=== PATIENT | male | born 1945 | race Caucasian/White ===

== ENCOUNTER → 2024-10-01 16:20 | Outpatient (REF) | payer MEDICARE, SELFPAY | LOC: RAD 16:20 | PROVIDERS: ATTENDING PHYSICIAN Family Medicine | DX: M16.11 Unilateral primary osteoarthritis, right hip (principal); M70.61 Trochanteric bursitis, right hip | CPT/HCPCS: 73522 ==

== ENCOUNTER → 2024-10-21 11:31 | Outpatient (REF) | payer MEDICARE, SELFPAY | LOC: REG 11:31 | PROVIDERS: ATTENDING PHYSICIAN Physician Assistant | DX: J22 Unspecified acute lower respiratory infection (principal) | CPT/HCPCS: 71046 ==

== ENCOUNTER → 2024-12-30 14:17 | Outpatient (REF) | payer MEDICARE, SELFPAY | LOC: RAD 14:17 | PROVIDERS: ATTENDING PHYSICIAN Nurse Practitioner Family; FAMILY PHYSICIAN Family Medicine | DX: R05.3 Chronic cough (principal) | CPT/HCPCS: 71046 ==

== ENCOUNTER → 2025-01-18 11:38 | Outpatient (REF) | payer MEDICARE, SELFPAY | LOC: RAD 11:38 | PROVIDERS: ATTENDING PHYSICIAN Nurse Practitioner Family; FAMILY PHYSICIAN Family Medicine | DX: J18.9 Pneumonia, unspecified organism (principal) | CPT/HCPCS: 71046 ==

== ENCOUNTER → 2025-01-27 16:26 | Outpatient (REF) | payer MEDICARE, SELFPAY | LOC: RAD 16:26 | PROVIDERS: ATTENDING PHYSICIAN Physician Assistant; FAMILY PHYSICIAN Family Medicine | DX: R04.2 Hemoptysis (principal); R06.02 Shortness of breath; J18.9 Pneumonia, unspecified organism | CPT/HCPCS: 71275; Q9967 ==

== ENCOUNTER 2025-01-27 23:24 | Inpatient (IN) | payer MEDICARE, SELFPAY ==
[2025-01-27 19:36] VITALS: BP 131/97
[2025-01-27 19:40] VITALS: BP 131/97
[2025-01-27 20:10] LABS: % Basophils 0.6 % (0-2); % Eosinophils 2.6 % (0-6); % Immature Granulocytes 0.6 % (0-0.5); % Lymphocytes 24.6 % (20.5-51.1); % Monocytes 8.2 % (1.7-9.3); % Neutrophils 63.4 % (42.2-75.2); Absolute Eosinophils 0.2 10^3/uL (0-0.7); Absolute Lymphocytes 1.5 10^3/uL (1.2-3.4); Absolute Monocytes 0.5 10^3/uL (0.1-0.6); Hematocrit 39.8 % (39.0-52.0); Hemoglobin 13.9 g/dL (13.0-18.0); Mean Corp Hgb Conc. 34.9 g/dL (33.0-37.0); Mean Corpuscular Hgb 31.6 pg (27.0-31.0); Mean Corpuscular Volume 90.5 fL (80.0-94.0); Mean Platelet Volume 8.2 fL (7.4-10.4); Nucleated Red Blood Cells % 0 % (-); Platelet Count 259 10^3/uL (130-400); Red Cell Dist. Width 13.5 % (11.5-14.5); White Blood Cell Count 6.2 10^3/uL (4.8-10.8)
[2025-01-27 20:23] LABS: ALT (SGPT) 24 U/L (0-50); AST (SGOT) 25 U/L (17-59); Albumin 3.7 g/dl (3.5-5.0); Alkaline Phosphatase 72 U/L (38-126); Blood Urea Nitrogen 12 mg/dl (9-20); Calcium 9.4 mg/dl (8.4-10.2); Carbon Dioxide 30 mmol/L (22-30); Chloride 108 mmol/L (98-107); Glucose 119 mg/dl (70-99); Potassium 4.5 mmol/L (3.5-5.1); Sodium 143 mmol/L (135-145); Total Bilirubin 0.5 mg/dl (0.2-1.3); Total Protein 6.3 g/dl (6.3-8.2); eGFR > 60.00
[2025-01-27 22:11] VITALS: BMI 31.0
[2025-01-27 22:12] VITALS: BP 144/84
--- NOTE | 2025-01-27 22:32 | ED.GENMED ---
History of Present Illness
General
Chief Complaint: Breathing Problem
Source: patient, records, spouse, previous radiology exam and previous hospital records
Exam Limitations: none
Time Seen by Provider: 01/27/25 22:20
Nursing documentation reviewed up to this point in time: agreed with
History of Present Illness
History of Present Illness:
79-year-old male referred to the ER for admission by his PCP due to worsening pneumonia symptoms started 3 to 4 months ago has been on doxycycline and Augmentin Levaquin multiple doses of steroids saw pulmonary apparently he responds and then
clinically worsens, has a harsh cough, no fever no hemoptysis, had a CAT scan today that showed multilobar pneumonia
Past History
Past History
ED Past Medical History: Negative Arrthythmia
ED Past Surgical History: Cholecystectomy
Social History
Tobacco: Non-smoker
Alcohol: None
Drug: None
Personal:
Living: with family
Employment: Retired
Review of Systems
Review of Systems
All Other Systems: Not applicable
Constitutional: Reports fatigue
Respiratory: Reports cough and trouble breathing
Cardiac: Reports no symptoms
ABD/GI: Reports no symptoms
: Reports no symptoms
Phy Exam
Physical Exam
Physical Exam:
Physical Exam
General: no apparent distress, not acutely ill
Neck: supple.
Heart: s1/s2 regular rate and rhythm, no murmur. equal radial pulses.
Lungs: decreased left base
Abdomen: Nontender
Neuro: alert and oriented. no focal neurological deficits
Skin: no rash
Psychiatric: well kept. interactive and cooperative
Extremities: no edema. no calf tenderness
Scores
Heart Failure Risk
Heart Failure Risk Score: Not Applicable
Course
Orders/Labs/Results
Orders:
Orders
01/27/25 19:56
Complete Blood Count/With Diff Urgent
Comprehensive Metabolic Panel Urgent
Lactic Acid Urgent
01/27/25 22:32
Ipratropium/Albuterol Sulfate [Duoneb] 3 ml INH R NOW ONE
Abnormal Lab Results
01/27/25
19:56
RBC 4.40 L 10^6/uL
(4.70-6.10)
MCH 31.6 H pg
(27.0-31.0)
Immature Gran % 0.6 H %
(0-0.5)
Chloride 108 H mmol/L
(98-107)
Glucose 119 H mg/dl
(70-99)
01/27/25 19:56
01/27/25 19:56
Vital Signs
Initial and Last Documented VS:
Initial Vital Signs
Temp Pulse Resp BP Pulse Ox
98.4 F 74 18 131/97 95
01/27/25 19:36 01/27/25 19:36 01/27/25 19:36 01/27/25 19:36 01/27/25 19:36
Last Documented Vital Signs
Temp Pulse Resp BP Pulse Ox
98.6 F 59 19 144/84 97
01/27/25 22:11 01/27/25 22:15 01/27/25 22:15 01/27/25 22:12 01/27/25 22:16
MDM/Problems Addressed
Differential Diagnosis Includes:
Pneumonia inflammatory process vasculitis other
MDM/Problems Addressed:
Shortness of breath worsening chest CT
*Radiology
Radiology exam reviewed: radiology read reviewed
*Pulse Oximetry
Patient hypoxic: no
*EKG
Interpreted by ED Provider?: Yes
Interpretation: normal
Comparison EKG: no comparison EKG present
Heart Rate: 78
Rate: normal
Rhythm: sinus
Ischemia: no ischemia
*Loom Setter Interpretation
Rate: normal
Interpretation: normal
Heart Rate: 78
Rhythm: sinus
*Critical Care Note
Total Time (30-74mins, 75-104mins- exclusive of procedures): Not Applicable
Data Reviewed
Review of Other/Old Records Reveals: Labs and Radiology Studies
Source: patient and spouse
Update Note
Update Note:
Update patient with worsening symptoms despite appropriate therapy specialty consultation as an outpatient sent in by PCP for admission which is not unreasonable not sure that this is infectious we will try nebs,
ED Attending Note
-
Portions of this chart may have been created with voice recognition software.� Occasional wrong word or��sound alike� substitutions may have occurred due to the inherent limitations of voice recognition software.
Discharge Plan
Departure
Patient Disposition: Admit
Date of Disposition: 01/27/25
Time of Disposition: 22:43
Admit to: Med/Surg
Presentation/result/management discussed w/ accepting MD/DO: Hospitalist
Patient with high blood pressure during this ER visit?: No
Condition: Good
Discharge Problem:
History of pneumonia, recurrent
Prescriptions:
No Action
Imodium
1 mg PO PRN PRN (Reason: Diarrhea )
aspirin
325 mg PO DAILY
famotidine
20 mg PO DAILY
meloxicam
15 mg DAILY
atorvastatin
80 mg PO DAILY
oxycodone 5 mg tablet
5 mg PO Q4HPRN PRN (Reason: breakthrough/severe pain) Qty: 10 0RF
tolterodine
4 mg PO DAILY
Interventions
Interventions:
*Risk Screen - Suicide Last Done: 01/27/25 22:11
*General Assessment Last Done: 01/27/25 19:39
*Neglect/Abuse Screening Last Done: 01/27/25 22:11
*ED- Fall Risk Assessment Last Done: 01/27/25 22:11
*ED COVID-19 Vaccine History Last Done: 01/27/25 22:11
ED- Cardiac Assessment Last Done: 01/27/25 22:16
ED- Pulmonary Assessment Last Done: 01/27/25 22:16
Discharge Date and Time
Print Language: TAJIK
[2025-01-27 23:00] VITALS: BP 150/85
[2025-01-27 23:05] LABS: Erythrocyte Sed Rate 11 mm/hour (0-20)
[2025-01-27] MEDS: DUONEB 3 ML INH (23:07)
--- NOTE | 2025-01-27 23:17 | HPS.HSE ---
Family Physician
-
Family Physician: Jon Knowles
Chief Complaint
-
cough
History of Present Illness
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 difficile, presenting for persistent cough. He had influenza in September and since then he has had persistent cough
and was found to have left lower lobe pneumonia treated with 3 courses of antibiotics including doxycycline first, Augmentin and then Levaquin 2 doses of steroids. The treatments do help with symptoms but they returned shortly after treatment. He
has a cough that is occasionally productive of yellow, brown color, sometimes blood and lung looking tissue. He has intermittent fevers and chills but takes medication for this. Has chest pain with cough.
He did see Dr. Pizarro in the office and was prescribed long-acting inhaler.
He is a former smoker. He drinks alcohol occasionally.
He does travel frequently and was recently in [facility] in October.
Medical History
Past Medical History
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 difficile)
Past Surgical History: Reports None
Social History
Tobacco: Former Smoker
Alcohol: Occasional
Drug: None
Family History
Family History: Not pertinent
Allergies / Home Medications
Allergies reflects when Allergies were last updated in [facility].
Home Medications with original date entered in [facility]
Allergy/Medication List:
Allergies
Allergy/AdvReac Type Severity Reaction Status Date / Time
No Known Allergies Allergy Verified 03/27/23 20:36
Home Medications
Imodium 1 mg PO PRN PRN Diarrhea 03/28/23
aspirin 325 mg PO DAILY Blood Clot Prevention/Tx 03/28/23
atorvastatin 80 mg PO DAILY High Cholesterol 03/28/23
famotidine 20 mg PO DAILY Gastrointestinal Issue 03/28/23
meloxicam 15 mg DAILY Pain 03/28/23
oxycodone 5 mg tablet 5 mg PO Q4HPRN PRN breakthrough/severe pain #10 tabs 03/28/23
tolterodine 4 mg PO DAILY Urinary Issue 03/28/23
Review of Systems
-
History Source: Patient
A 12 point ROS was completed and negative except as noted: Yes
Constitutional: Reports No Symptoms
EENT: Reports No Symptoms
Respiratory: Reports See HPI
Cardiac: Reports No Symptoms
Abdomen/GI: Reports No Symptoms
: Reports No Symptoms
Musculoskeletal: Reports No Symptoms
Skin: Reports No Symptoms
Neurological: Reports No Symptoms
Endocrine: Reports No Symptoms
Hematologic/Lymphatic: Reports No Symptoms
Psych: Reports No Symptoms
Physical Exam
Vital Signs
Vital Signs
Temp Pulse Resp BP Pulse Ox
98.6 F 59 19 144/84 97
01/27/25 22:11 01/27/25 22:15 01/27/25 22:15 01/27/25 22:12 01/27/25 22:16
Physical Exam
General: Well Developed, Well Nourished and No Apparent Distress
HEENT: NormoCephalic, Moist mucous membranes and Atraumatic
Respiratory: Clear
Cardiac: S1/S2 and Regular Rhythm; No Murmur or Rub
GI: Soft, Non Tender, Non Distended and Normal Bowel Sounds; No Organomegaly
Rectal: Deferred by Provider
Musculoskeletal: No Clubbing, No Cyanosis and No Edema
Skin: No Rash
Neuro: Nonfocal/grossly intact
Laboratory Results
-
01/27/25 19:56
01/27/25 19:56
Laboratory Results
Lactic Acid 2.0 mmol/L (0.7-2.0) 01/27/25 19:56
Total Bilirubin 0.5 mg/dl (0.2-1.3) 01/27/25 19:56
AST 25 U/L (17-59) 01/27/25 19:56
ALT 24 U/L (0-50) 01/27/25 19:56
Alkaline Phosphatase 72 U/L (38-126) 01/27/25 19:56
Data Reviewed
-
Lab Data: Labs Reviewed by me
Old Records: Reviewed
Impression/Plan
-
IMPRESSION:
PLAN:
# Persistent left lower lobe pneumonia despite multiple courses of antibiotics/steroids
-Not hypoxemic
-CT chest today shows moderate pneumonia in the lingula and basilar left lower lobe, new complete occlusion of the left upper lobe bronchus
- DuoNebs every 6 hours
- Mucinex
- Ceftriaxone/azithromycin
- Appears that he responds to treatments, but symptoms return
-Check sputum culture
- Check strep antigen, Legionella, MRSA
-Pro-Alonso pending
- Pulmonary consulted, may need to consider bronchoscopy for atypical types of pneumonia
GERD
- Continue famotidine
Hypercholesteremia
- Continue statin
- Continue aspirin for prophylaxis
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
- Continue Imodium
History of C. difficile
Former smoker
Full code
DVT prophylaxis�heparin
Regular diet
[2025-01-28] VITALS (12 sets, daily range): BP systolic 126–161; BP diastolic 69–90; BMI 29.9
[2025-01-28 00:10] LABS: Procalcitonin < 0.05 ng/ml (0.0-0.25)
[2025-01-28] MEDS: ROCEPHIN 1000 MG IV ×2 (01:11→21:52)
[2025-01-28] MEDS: ZITHROMAX INFUSION 250 IV ×2 (01:11→22:27)
[2025-01-28] MEDS: STERILE WATER FOR INJECTION 10 ML IV ×2 (01:12→21:52)
[2025-01-28 06:11] LABS: % Basophils 0.8 % (0-2); % Eosinophils 2.7 % (0-6); % Immature Granulocytes 0.5 % (0-0.5); % Lymphocytes 25.7 % (20.5-51.1); % Monocytes 9.6 % (1.7-9.3); % Neutrophils 60.7 % (42.2-75.2); Absolute Basophils 0.1 10^3/uL (0-0.2); Absolute Eosinophils 0.2 10^3/uL (0-0.7); Absolute Lymphocytes 1.6 10^3/uL (1.2-3.4); Absolute Monocytes 0.6 10^3/uL (0.1-0.6); Absolute Neutrophils 3.8 10^3/uL (1.4-6.5); Hematocrit 37.1 % (39.0-52.0); Hemoglobin 13.1 g/dL (13.0-18.0); Mean Corp Hgb Conc. 35.3 g/dL (33.0-37.0); Mean Corpuscular Hgb 31.4 pg (27.0-31.0); Mean Platelet Volume 8.3 fL (7.4-10.4); Nucleated Red Blood Cells % 0 % (-); Platelet Count 236 10^3/uL (130-400); Red Blood Cell Count 4.17 10^6/uL (4.70-6.10); Red Cell Dist. Width 13.5 % (11.5-14.5); White Blood Cell Count 6.2 10^3/uL (4.8-10.8)
[2025-01-28 06:32] LABS: ALT (SGPT) 23 U/L (0-50); AST (SGOT) 24 U/L (17-59); Albumin 3.2 g/dl (3.5-5.0); Alkaline Phosphatase 67 U/L (38-126); Blood Urea Nitrogen 14 mg/dl (9-20); Calcium 9.1 mg/dl (8.4-10.2); Carbon Dioxide 24 mmol/L (22-30); Chloride 112 mmol/L (98-107); Estimated Creatinine Clearance 80 ml/min; Glucose 98 mg/dl (70-99); Sodium 142 mmol/L (135-145); Total Bilirubin 0.5 mg/dl (0.2-1.3); Total Protein 5.6 g/dl (6.3-8.2); eGFR > 60.00
[2025-01-28] MEDS: DUONEB 3 ML INH (07:28)
[2025-01-28] MEDS: HEPARIN 5000 UNITS SC ×2 (08:05→20:14)
[2025-01-28] MEDS: MUCINEX 1200 MG PO (08:05)
--- NOTE | 2025-01-28 09:11 | W.PN.HOSP.TC ---
Today's Communication/Plan
-
See plan
Assessment / Plan
Assessment / Plan
Impression:
79 years old male with prior history of tobacco smoking presents with persistent cough, intermittent hemoptysis. Symptomatic for close to 5 months with no relief after multiple courses of antibiotics and corticosteroids.
Acute hypoxic respiratory insufficiency�88% on room air upon presentation.
Persistent cough.
Intermittent hemoptysis.
Lingular consolidation with bronchial obstruction on CT scan
Tobacco smoker cigars quit over 15 years ago.
Occupational exposure working on [employer]
Other conditions:
History of C. difficile colitis.
Pseudomonas colitis with chronic
Dyslipidemia.
GERD.
Cholecystectomy
Plan:
Persistent cough, intermittent hemoptysis
CT scan with lingular consolidation and bronchial obstruction.
Treated for pneumonia with multiple courses of antibiotics and corticosteroids with no relief.
Afebrile.
Normal WBC, undetectable procalcitonin.
Pulmonology consultation with consideration of endoscopic airway evaluation.
Empiric antibiotics covering community-acquired pathogens: Ceftriaxone/Zithromax. Depends on clinical course consider broaden spectrum
Cough suppressants
Nebulizers
Continue Breztri
Anticipated Discharge: 24 - 48 hours
Subjective/Interval History
-
Date of Service: January 28, 2025
Objective Data
-
Labs:
Laboratory Results
01/28/25
05:57
WBC 6.2
Hgb 13.1
Hct 37.1 L
Plt Count 236
Sodium 142
Potassium 4.0
Chloride 112 H
Carbon Dioxide 24
BUN 14
Creatinine 0.8
Glucose 98
Calcium 9.1
Total Bilirubin 0.5
AST 24
ALT 23
Alkaline Phosphatase 67
Vital Signs:
Vital Signs
Temp Pulse Resp BP Pulse Ox
98.2 F 76 19 149/90 93
01/28/25 07:00 01/28/25 08:00 01/28/25 08:00 01/28/25 07:00 01/28/25 07:31
Physical Exam
-
General: Well Developed and No Apparent Distress
HEENT: Normocephalic, Atraumatic and Moist Mucous Membranes
Respiratory: Rhonchi; Negative Wheezes
Cardiac: Regular Rhythm and S1/S2; Negative Murmur, Rub or Gallop
GI: Soft, Nontender, Nondistended and Normal Bowel Sounds; Negative Organomegaly
Rectal: Deferred by Provider
Musculoskeletal: No Clubbing, No Cyanosis and No Edema
Skin: Negative Rash
Neuro: Nonfocal/Grossly Intact
[2025-01-28] MEDS: ROBITUSSIN AC 10 ML PO (09:54)
[2025-01-28] MEDS: SPIRIVA RESPIMAT 2.5 MCG 2 PUFF INH (11:06)
[2025-01-28] MEDS: VENTOLIN NEBULES 2.5 MG INH ×3 (11:07→19:28)
[2025-01-28] MEDS: SYMBICORT 160/4.5 MCG INHALER 2 PUFF INH ×2 (11:07→19:28)
[2025-01-28] MEDS: LEXAPRO 10 MG PO (11:10)
[2025-01-28] MEDS: PEPCID 20 MG PO (11:10)
[2025-01-28] MEDS: LIPITOR 80 MG PO (11:10)
[2025-01-28] MEDS: DETROL LA 4 MG PO (12:25)
--- NOTE | 2025-01-28 16:03 | CON.PUL ---
Consultation
Consultation Request
Date/Time Consultation Requested: 01/28/2025
Date/Time Consultation Performed: 01/28/2025
Requesting Provider: Dr. García
Performing Provider: Dr. Jonny Lane
Reason for Consultation: abnormal CT chest
Medical History
-
History of Present Illness:
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 difficile, presented with coughing.
Patient apparently had influenza in September and since then had a persistent cough and was found to have a left lower lobe pneumonia reportedly treated with 3 courses of antibiotics, doxycycline, Augmentin and 2 courses of Levaquin with the steroids.
Apparently symptoms returned shortly after therapy.
Cough is occasionally productive of yellow sputum, no hemoptysis, does report having some clumps on sputum.
Does report subjective intermittent fevers.
He was seen by Dr. Pizarro in the outpatient setting.
He is a former smoker.
He traveled to [facility] in October 2024
-
[facility] records reviewed-patient was seen by Dr. Pizarro in December 2024. Initial visit due to chronic coughing.
Apparently had flu a October 21, 2024 and symptoms have been persistent since then.
Given persistently abnormal x-ray and symptoms he has been treated with multiple antibiotics. More recently on Levaquin-completed 7 days last Monday.
CT of the chest was performed and after reviewing he was sent to the emergency room by primary care due to nonclearing infiltrate.
-
Currently appears nontoxic
Denies hemoptysis
He always feels better with antibiotics and steroids
He has never had any pulmonary problems prior September.
Denies any weight loss
He does have GERD but denies swallowing problems.
-
Last anesthesia in 2022 for cholecystectomy without complications.
He reports having colonoscopy in the past without complications.
-
Denies any cardiac disease. Denies shortness of breath or chest pain in general.
Past Medical History
Past Medical History: Other (See assessment and plan)
Social History
Tobacco: Former Smoker (Cigars/pipe. Minimal cigarette smoking. Quit in 1988)
Alcohol: Occasional
Drug: None
Personal:
Living: With Family
Employment: Retired
Occupational Exposures: Denies
Environmental Exposures: Denies
Family History
Family History: Reviewed & Not Pertinent
Allergies / Home Medications
Allergies
Allergy/AdvReac Type Severity Reaction Status Date / Time
No Known Allergies Allergy Verified 03/27/23 20:36
Home Medications
�Medication �Instructions �Recorded �Confirmed �Last Taken �Type
aspirin 325 mg tablet 325 mg PO DAILY Blood Clot 03/28/23 01/28/25 Unknown History
Prevention/Tx ##0
atorvastatin 80 mg tablet (Lipitor) 80 mg PO DAILY High Cholesterol ##0 03/28/23 01/28/25 Unknown History
famotidine 20 mg tablet (Pepcid) 20 mg PO DAILY Gastrointestinal 03/28/23 01/28/25 Unknown History
Issue ##0
loperamide 2 mg tablet 1 mg PO DAILY ##0 03/28/23 01/28/25 Unknown History
meloxicam 15 mg tablet 15 mg PO DAILY Pain ##0 03/28/23 01/28/25 Unknown History
tolterodine 4 mg capsule,extended 4 mg PO DAILY Urinary Issue ##0 03/28/23 01/28/25 Unknown History
release 24 hr
acetaminophen 500 mg tablet 1,000 mg PO HS 01/28/25 01/28/25 Unknown History
(Tylenol Extra Strength)
albuterol sulfate 90 mcg/actuation 2 puff inhalation R Q6HPRN PRN sob 01/28/25 01/28/25 Unknown History
aerosol inhaler
budesonide 160 mcg-glycopyr 9 2 inh inhalation R BID 01/28/25 01/28/25 Unknown History
mcg-formot 4.8 mcg/actuation HFA
inhaler (Breztri Aerosphere)
escitalopram oxalate 10 mg tablet 10 mg PO DAILY 01/28/25 01/28/25 Unknown History
(Lexapro)
ipratropium 0.5 mg-albuterol 3 mg 3 ml inhalation R TID 01/28/25 01/28/25 Unknown History
(2.5 mg base)/3 mL nebulization
soln
promethazine-DM 6.25 mg-15 mg/5 mL 5 ml PO Q6HPRN PRN cough 01/28/25 01/28/25 Unknown History
oral syrup
Review of Systems
-
History Source: Patient
All other systems: Negative unless noted
Vitals / Labs / Diagnostic Testing
Vital Signs
Temp Pulse Resp BP Pulse Ox
98.1 F 78 20 141/80 94
01/28/25 11:00 01/28/25 14:00 01/28/25 14:00 01/28/25 12:00 01/28/25 12:00
Lab Data
01/28/25 05:57
01/28/25 05:57
Microbiology
01/28/25 07:10 Sputum Respiratory Culture - Final
01/28/25 07:10 Sputum Gram Stain - Final
01/28/25 01:02 Urine Legionella Urinary Antigen - Final
Negative for Legionella pneumophila Serogroup 1 antigen.
A negative result does not rule out the possiblity of
Legionella infection due to other serogroups or species of
Legionella. Clinical correlation is recommended.
01/28/25 01:02 Urine Streptococcus pneumoniae Antigen (M - Final
Negative for Streptococcus pneumoniae antigen.
A negative result does not exclude infection with
Streptococcus pneumoniae. Clinical correlation is
recommended.
Diagnostic Testing:
Physical Exam
-
HEENT: Normocephalic
Cardiovascular: S1/S2
Respiratory: Clear and Non-Labored Respirations
GI: Soft and Non Distended
Neurology: Awake and AO x 3
Skin: Warm
General: Comfortable
Assessment
-
79-year-old male with past medical history noted. Started with pulmonary symptoms since September after influenza. Since then with intermittent coughing, shortness of breath, cough paroxysms, denies any fevers or chills. Has received 3 courses of
antibiotics including doxycycline, Augmentin and more recently Levaquin completed last Monday. Due to persistent symptoms CT scan was performed in the outpatient setting and showed significant abnormalities. He was sent to the emergency room for
evaluation. He reports feeling better with the steroids and antibiotics but symptoms shortly after recur. He was seen in our office by Dr. Pizarro and prescribed steroids without significant improvement.
We were consulted for evaluation of abnormal CT chest and possibly airway inspection with cultures
Abnormal CT chest 01/27/2025:
Moderate pneumonia in the lingula and basilar left lower lobe. Near complete occlusion of the left upper lobe bronchus. Mild left hilar lymphadenopathy. Minimal left parapneumonic effusion. Severe calcific atherosclerotic plaques. Mild
splenomegaly.
Nonresolving pneumonia-cannot rule out malignancy versus other type of infectious process such as fungal.
Conditions present prior admission:
GERD
Hypercholesterolemia
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
status postcholecystectomy in 2022
History of C. difficile
Former smoker-mainly cigar and pipe and quit in 1988.-Denies prior pulmonary problems.
Assessment and plan:
Abnormal CT chest: Nonresolving pneumonia/coughing despite multiple courses of antibiotics and steroids since September 2024.
He was seen by Dr. Pizarro in December 2024-recommended inhalers and repeat imaging.
Symptoms have been persistent.
-
Prior imaging reviewed:
CT abdomen pelvis lung cuts 03/27/2023: Relatively clear lungs.
Chest x-ray 10/21/2024: Clear lung
Chest x-ray 12/30/2024: Patchy left lower lobe opacifications suggestive of pneumonia.
Chest x-ray 01/18/2025: Moderate to large dense airspace consolidation in the left lower lobe progressed compared to prior.
CT chest this admission 01/27/2025: Noted with moderate pneumonia in the lingula and basilar left lower lobe. Near complete occlusion of the left upper lobe bronchus. Mild left hilar adenopathy. Minimal left parapneumonic effusion.
-
Persistent symptoms including coughing, with paroxysms. Persistent left lower lobe abnormality now with mild mediastinal adenopathy and near complete occlusion of the left upper lobe bronchus.
Lack of fevers and leukocytosis. Negative procalcitonin
Recommend airway inspection plus or minus endobronchial ultrasound evaluation of hilar and mediastinal lymph nodes. BAL with cultures-rule out malignancy versus other type of infectious etiology such as fungal-he denies any risk factors or
exposures.
N.p.o. after midnight
Patient is high risk for cancer given former smoking-quit in 1988 mainly cigar and pipe.
Interestingly, there was no significant abnormality on CT abdomen pelvis lung cuts from March 2023.
-
Sputum culture this admission poor sample
Negative Legionella
Negative Streptococcus urine antigen
MRSA screening pending
Blood cultures pending
Okay to continue antibiotics IV for community-acquired pneumonia azithromycin/Zithromax for now.
Antitussives
Mucolytic's
Not bronchospastic on exam. Continue Symbicort/Spiriva.
-
Patient does have mild coronary calcification on CAT scan.
Obtain EKG
Denies any exertional chest pain or cardiac history.
Seen in cardiology
Underwent general anesthesia 2022 for cholecystectomy without complications.
-
DVT prophylaxis with heparin subcu.
-
Will follow
--- NOTE | 2025-01-28 17:09 | PTCARENOTE ---
Received pt from ED. Pt ambulatory to bed with no assistance. at bedside. Oriented to room, no complaints at this time.
[2025-01-29 07:37] VITALS: BP 136/70
[2025-01-29] MEDS: VENTOLIN NEBULES 2.5 MG INH ×4 (07:40→19:27)
[2025-01-29] MEDS: SYMBICORT 160/4.5 MCG INHALER 2 PUFF INH ×2 (07:40→19:27)
[2025-01-29] MEDS: SPIRIVA RESPIMAT 2.5 MCG 2 PUFF INH (07:40)
[2025-01-29 09:45] VITALS: BP 136/70; BP 152/87
--- NOTE | 2025-01-29 09:56 | W.PN.PUL3 ---
Today's Communication / Plan
-
Follow BAL and washing cultures
Continue antibiotics for today
Secretion clearance interventions
Assessment
-
79-year-old male with past medical history noted. Started with pulmonary symptoms since September after influenza. Since then with intermittent coughing, shortness of breath, cough paroxysms, denies any fevers or chills. Has received 3 courses of
antibiotics including doxycycline, Augmentin and more recently Levaquin completed last Monday. Due to persistent symptoms CT scan was performed in the outpatient setting and showed significant abnormalities. He was sent to the emergency room for
evaluation. He reports feeling better with the steroids and antibiotics but symptoms shortly after recur. He was seen in our office by Dr. Pizarro and prescribed steroids without significant improvement.
We were consulted for evaluation of abnormal CT chest and possibly airway inspection with cultures
Abnormal CT chest 01/27/2025:
Moderate pneumonia in the lingula and basilar left lower lobe. Near complete occlusion of the left upper lobe bronchus. Mild left hilar lymphadenopathy. Minimal left parapneumonic effusion. Severe calcific atherosclerotic plaques. Mild
splenomegaly.
Nonresolving pneumonia-cannot rule out malignancy versus other type of infectious process such as fungal.
Conditions present prior admission:
GERD
Hypercholesterolemia
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
status postcholecystectomy in 2022
History of C. difficile
Former smoker-mainly cigar and pipe and quit in 1988.-Denies prior pulmonary problems.
Assessment and plan:
Abnormal CT chest: Nonresolving pneumonia/coughing despite multiple courses of antibiotics and steroids since September 2024.
He was seen by Dr. Pizarro in December 2024-recommended inhalers and repeat imaging.
Symptoms have been persistent.
-
Prior imaging reviewed:
CT abdomen pelvis lung cuts 03/27/2023: Relatively clear lungs.
Chest x-ray 10/21/2024: Clear lung
Chest x-ray 12/30/2024: Patchy left lower lobe opacifications suggestive of pneumonia.
Chest x-ray 01/18/2025: Moderate to large dense airspace consolidation in the left lower lobe progressed compared to prior.
CT chest this admission 01/27/2025: Noted with moderate pneumonia in the lingula and basilar left lower lobe. Near complete occlusion of the left upper lobe bronchus. Mild left hilar adenopathy. Minimal left parapneumonic effusion.
-
Persistent symptoms including coughing, with paroxysms. Persistent left lower lobe abnormality now with mild mediastinal adenopathy and near complete occlusion of the left upper lobe bronchus.
Lack of fevers and leukocytosis. Negative procalcitonin
-
Airway inspection underwent 01/29/2025: Thick mucoid secretions found on left mainstem bronchus and left upper lobe.
No endobronchial lesion. Mucosa was mildly erythematous.
Right lung was clean and with normal anatomy.
Washings and BAL sent for bacterial, fungal cultures, cell count and cytology.
--
Patient is high risk for cancer given former smoking-quit in 1988 mainly cigar and pipe.
Interestingly, there was no significant abnormality on CT abdomen pelvis lung cuts from March 2023.
Radiographic follow-up will be needed in the next 6 to 8 weeks. He will continue to follow-up with Dr. Pizarro.
-
Sputum culture this admission poor sample
Wait for BAL cultures.
Negative Legionella
Negative Streptococcus urine antigen
MRSA screening pending
Blood cultures pending
Okay to continue antibiotics IV for community-acquired pneumonia azithromycin/Zithromax for now. If cultures negative then discontinue antibiotics. I favor observation of antibiotics since patient just completed course of Levaquin last Monday.
May contemplate low-dose macrolide therapy for anti-inflammatory properties upon discharge.
Will start secretion clearance interventions
Acapella device
As needed nebulizers
Antitussives
Mucolytic's
Not bronchospastic on exam. Continue Symbicort/Spiriva-he has been taking Brestri since December.
-
Patient does have mild coronary calcification on CAT scan.
Obtain EKG
Denies any exertional chest pain or cardiac history.
Underwent general anesthesia 2022 for cholecystectomy without complications.
-
DVT prophylaxis with heparin subcu.
-
Will follow.
Subjective Data
-
Date of Service:
Date of Service: January 29, 2025
Chief Complaint: Pulmonary Follow Up (Pneumonia)
Subjective:
Continues to report coughing
No significant hemoptysis intermittent phlegm production
Denies shortness of breath or wheeze
Review of Systems
General: Fever (n)
Cardiopulmonary: Dyspnea (none), Cough and Sputum Production
GI: Abdominal Pain (n) and Nausea (n)
Objective Data
Data Reviewed
Vital Signs / I&O / Oxygen:
Vital Signs
Temp Pulse Resp BP Pulse Ox
98.4 F 65 16 136/70 90
01/29/25 07:37 01/29/25 07:37 01/29/25 07:43 01/29/25 07:37 01/29/25 07:43
Intake and Output
01/28/25 01/29/25 01/30/25
06:59 06:59 06:59
Intake Total 680 / 680
Balance 680 / 680
SaO2 90
Nasal Cannula flow liters per 2
minute
Physical Exam
General: Comfortable
HEENT: Normocephalic
Cardiovascular: S1-S2 and Regular Rhythm
Respiratory: Clear and Non-Labored Respirations
GI: Soft and Non Distended
Neurology: Awake and No Motor Deficits
Skin: Warm
Labs/Micro/Reports
Lab Data
01/28/25 05:57
01/28/25 05:57
Microbiology
01/28/25 01:02 Nose MRSA Screen - Final
No Methicillin Resistant Staphylococcus aureus isolated.
01/27/25 23:28 Blood/Venous Blood Culture - Preliminary
No Growth in 24 hours- Final report to follow
01/27/25 23:24 Blood/Venous Blood Culture - Preliminary
No Growth in 24 hours- Final report to follow
01/28/25 07:10 Sputum Respiratory Culture - Final
01/28/25 07:10 Sputum Gram Stain - Final
01/28/25 01:02 Urine Legionella Urinary Antigen - Final
Negative for Legionella pneumophila Serogroup 1 antigen.
A negative result does not rule out the possiblity of
Legionella infection due to other serogroups or species of
Legionella. Clinical correlation is recommended.
01/28/25 01:02 Urine Streptococcus pneumoniae Antigen (M - Final
Negative for Streptococcus pneumoniae antigen.
A negative result does not exclude infection with
Streptococcus pneumoniae. Clinical correlation is
recommended.
[2025-01-29 10:00] VITALS: BP 133/64
[2025-01-29 10:12] VITALS: BP 114/64
[2025-01-29] MEDS: PEPCID 20 MG PO (10:28)
[2025-01-29] MEDS: DETROL LA 4 MG PO (10:28)
[2025-01-29] MEDS: LIPITOR 80 MG PO (10:28)
[2025-01-29] MEDS: IMODIUM 2 MG PO (10:28)
[2025-01-29] MEDS: LEXAPRO 10 MG PO (10:28)
[2025-01-29] MEDS: HEPARIN 5000 UNITS SC ×2 (10:29→21:09)
--- NOTE | 2025-01-29 10:34 | PN.CDI ---
CDI
- -
CDI:
Physician Documentation Request
Admit Date: 01/27/25 23:24
Dear Doctor Ricky,
Please review the following and provide your response in the progress notes.
Clinical Indicators:
The diagnosis of pneumonia was documented on 01/27 H&P but is not consistently noted in subsequent documentation.
- 01/27 H&P 'Persistent left lower lobe pneumonia'
- 'CT chest today shows moderate pneumonia in the lingula and basilar left lower lobe'
- 01/29 Pulmonary 'Nonresolving pneumonia'
- 01/28 PN 'Empiric antibiotics covering community-acquired pathogens'
Please clarify the following:
____ - Pneumonia was present on admission and is now resolved.
____ - Pneumonia was present on admission and is still being monitored, evaluated or treated
____ - Pneumonia was ruled out
____ - Pneumonia is still a likely, suspected, probable diagnosis
____ - Other
Use of terms such as suspected, likely, concern for, or probable (associated with a specific diagnosis that is being evaluated, monitored, or treated as if it exists) are acceptable and can be coded in the inpatient setting, when documented at the
time of discharge.
Thank you,
Kirsten Whitfield RN
CDI Specialist
Please use your independent medical judgment in providing your response.
[2025-01-29] MEDS: ROBITUSSIN AC 10 ML PO (11:24)
[2025-01-29 14:00] LABS: Brochalveolar Lavage Color Colorless; Brochalveolar Lavage Volume 5 ml
[2025-01-29 14:01] LABS: Brochalveolar Lavage Character Hazy (Clear); Brochalveolar Lavage WBC 990000 cells/ml
[2025-01-29 14:29] LABS: BAL Lymphocytes 28 %; BAL Neutrophils 53 %
[2025-01-29 14:30] LABS: BAL Lining Cells 3 %; BAL Macrophages 16 %
--- NOTE | 2025-01-29 15:11 | W.PN.HOSP.TC ---
Today's Communication/Plan
-
Monitor after bronchoscopy
Follow cultures and cytology
Continue antibiotic
Assessment / Plan
Assessment / Plan
Impression:
79 years old male with prior history of tobacco smoking presents with persistent cough, intermittent hemoptysis. Symptomatic for close to 5 months with no relief after multiple courses of antibiotics and corticosteroids.
Acute hypoxic respiratory insufficiency�88% on room air upon presentation.
Persistent cough.
Intermittent hemoptysis.
Lingular consolidation with bronchial obstruction on CT scan
Tobacco smoker cigars quit over 15 years ago.
Occupational exposure working on [employer]
Other conditions:
History of C. difficile colitis.
Pseudomonas colitis with chronic
Dyslipidemia.
GERD.
Cholecystectomy
Plan:
Persistent cough, intermittent hemoptysis
CT scan with lingular consolidation and bronchial obstruction.
Treated for pneumonia with multiple courses of antibiotics and corticosteroids with no relief.
Afebrile.
Normal WBC, undetectable procalcitonin.
Pulmonology input appreciated.
Status post bronchoscopy with no evidence of endobronchial lesions. Cultures/cytology pending.
Empiric antibiotics covering community-acquired pathogens: Ceftriaxone/Zithromax. Depends on clinical course consider broaden spectrum
Cough suppressants
Nebulizers
Continue Breztri
Anticipated Discharge: 24 - 48 hours
Subjective/Interval History
-
Date of Service: January 29, 2025
Objective Data
-
Vital Signs:
Vital Signs
Temp Pulse Resp BP Pulse Ox
97.3 F 65 16 114/64 90
01/29/25 10:13 01/29/25 11:19 01/29/25 11:19 01/29/25 10:12 01/29/25 11:19
I&O
01/28/25 01/29/25 01/30/25
06:59 06:59 06:59
Intake Total 680 / 680
Balance 680 / 680
Physical Exam
-
General: Well Developed and No Apparent Distress
HEENT: Normocephalic, Atraumatic and Moist Mucous Membranes
Respiratory: Rhonchi; Negative Wheezes
Cardiac: Regular Rhythm and S1/S2; Negative Murmur, Rub or Gallop
GI: Soft, Nontender, Nondistended and Normal Bowel Sounds; Negative Organomegaly
Rectal: Deferred by Provider
Musculoskeletal: No Clubbing, No Cyanosis and No Edema
Skin: Negative Rash
Neuro: Nonfocal/Grossly Intact
[2025-01-29 15:16] VITALS: BP 113/69
[2025-01-29] MEDS: ROCEPHIN 1000 MG IV (21:10)
[2025-01-29] MEDS: STERILE WATER FOR INJECTION 10 ML IV (21:10)
[2025-01-29] MEDS: ZITHROMAX INFUSION 250 IV (21:10)
[2025-01-29 23:13] VITALS: BP 134/75
[2025-01-30 07:00] VITALS: BP 117/56
[2025-01-30] MEDS: LEXAPRO 10 MG PO (07:31)
[2025-01-30] MEDS: PEPCID 20 MG PO (07:31)
[2025-01-30] MEDS: DETROL LA 4 MG PO (07:31)
[2025-01-30] MEDS: IMODIUM 2 MG PO (07:31)
[2025-01-30] MEDS: LIPITOR 80 MG PO (07:31)
[2025-01-30] MEDS: HEPARIN 5000 UNITS SC (07:31)
[2025-01-30] MEDS: VENTOLIN NEBULES 2.5 MG INH ×2 (07:42→11:16)
[2025-01-30] MEDS: SPIRIVA RESPIMAT 2.5 MCG 2 PUFF INH (07:42)
[2025-01-30] MEDS: SYMBICORT 160/4.5 MCG INHALER 2 PUFF INH (07:42)
--- NOTE | 2025-01-30 12:04 | W.DS.TRANS ---
DC Summary - [employer]
-
Discharge Instructions:
Discharge Diagnosis/Procedures Pneumonia with bronchial obstruction
Diet Regular
Instructions:
Stand-Alone Forms:
Changes to Home Medications: Yes
Discharge Medications:
DC Medications w/original date entered in [facility]
aspirin 325 mg tablet 325 mg PO DAILY Blood Clot Prevention/Tx ##0 03/28/23
atorvastatin 80 mg tablet (Lipitor) 80 mg PO DAILY High Cholesterol ##0 03/28/23
famotidine 20 mg tablet (Pepcid) 20 mg PO DAILY Gastrointestinal Issue ##0 03/28/23
loperamide 2 mg tablet 1 mg PO DAILY ##0 03/28/23
meloxicam 15 mg tablet 15 mg PO DAILY Pain ##0 03/28/23
tolterodine 4 mg capsule,extended release 24 hr 4 mg PO DAILY Urinary Issue ##0 03/28/23
acetaminophen 500 mg tablet (Tylenol Extra Strength) 1,000 mg PO HS 01/28/25
albuterol sulfate 90 mcg/actuation aerosol inhaler 2 puff inhalation R Q6HPRN PRN sob 01/28/25
budesonide 160 mcg-glycopyr 9 mcg-formot 4.8 mcg/actuation HFA inhaler (Breztri Aerosphere) 2 inh inhalation R BID 01/28/25
escitalopram oxalate 10 mg tablet (Lexapro) 10 mg PO DAILY 01/28/25
ipratropium 0.5 mg-albuterol 3 mg (2.5 mg base)/3 mL nebulization soln 3 ml inhalation R TID 01/28/25
promethazine-DM 6.25 mg-15 mg/5 mL oral syrup 5 ml PO Q6HPRN PRN cough 01/28/25
azithromycin 250 mg tablet (Zithromax) 250 mg PO .every other day 10 days #10 tabs 01/30/25
Home Medication Changes
zithromax
Pending Results: Yes
Additional Pending Results:
Broch cytology
--- NOTE | 2025-01-30 12:11 | W.PN.PUL3 ---
Today's Communication / Plan
-
DC plan today.
start Azithromycin 250mg QOD - for antiinflammatory properties. Until seen in office.
Acepella continue at home
Follow cytology
Nebs PRN
restart Breztri.
Discussed with primary team.
Sign off.
Assessment
-
79-year-old male with past medical history noted. Started with pulmonary symptoms since September after influenza. Since then with intermittent coughing, shortness of breath, cough paroxysms, denies any fevers or chills. Has received 3 courses of
antibiotics including doxycycline, Augmentin and more recently Levaquin completed last Monday. Due to persistent symptoms CT scan was performed in the outpatient setting and showed significant abnormalities. He was sent to the emergency room for
evaluation. He reports feeling better with the steroids and antibiotics but symptoms shortly after recur. He was seen in our office by Dr. Pizarro and prescribed steroids without significant improvement.
We were consulted for evaluation of abnormal CT chest and possibly airway inspection with cultures
Abnormal CT chest 01/27/2025:
Moderate pneumonia in the lingula and basilar left lower lobe. Near complete occlusion of the left upper lobe bronchus. Mild left hilar lymphadenopathy. Minimal left parapneumonic effusion. Severe calcific atherosclerotic plaques. Mild
splenomegaly.
Nonresolving pneumonia-cannot rule out malignancy versus other type of infectious process such as fungal.
Conditions present prior admission:
GERD
Hypercholesterolemia
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
status postcholecystectomy in 2022
History of C. difficile
Former smoker-mainly cigar and pipe and quit in 1988.-Denies prior pulmonary problems.
Assessment and plan:
Abnormal CT chest: Nonresolving pneumonia/coughing despite multiple courses of antibiotics and steroids since September 2024.
He was seen by Dr. Pizarro in December 2024-recommended inhalers and repeat imaging.
Symptoms have been persistent.
-
Prior imaging reviewed:
CT abdomen pelvis lung cuts 03/27/2023: Relatively clear lungs.
Chest x-ray 10/21/2024: Clear lung
Chest x-ray 12/30/2024: Patchy left lower lobe opacifications suggestive of pneumonia.
Chest x-ray 01/18/2025: Moderate to large dense airspace consolidation in the left lower lobe progressed compared to prior.
CT chest this admission 01/27/2025: Noted with moderate pneumonia in the lingula and basilar left lower lobe. Near complete occlusion of the left upper lobe bronchus. Mild left hilar adenopathy. Minimal left parapneumonic effusion.
-
Persistent symptoms including coughing, with paroxysms. Persistent left lower lobe abnormality now with mild mediastinal adenopathy and near complete occlusion of the left upper lobe bronchus.
Lack of fevers and leukocytosis. Negative procalcitonin- Doubt active infection.
-
Airway inspection underwent 01/29/2025: Thick mucoid secretions found on left mainstem bronchus and left upper lobe.
No endobronchial lesion. Mucosa was mildly erythematous.
Right lung was clean and with normal anatomy.
Washings and BAL sent for bacterial, fungal cultures, cell count and cytology- so far negative.
--
Patient is high risk for cancer given former smoking-quit in 1988 mainly cigar and pipe.
Interestingly, there was no significant abnormality on CT abdomen pelvis lung cuts from March 2023.
Radiographic follow-up will be needed in the next 6 to 8 weeks. He will continue to follow-up with Dr. Pizarro.
Will follow cytology.
-
Sputum culture this admission poor sample
Bronch cultures negative so far.
Negative Legionella
Negative Streptococcus urine antigen
MRSA screening negative
Blood cultures negative
DC ABX
Starte low-dose macrolide therapy for anti-inflammatory properties upon discharge. Until seen in office.
Will start secretion clearance interventions- acapella device should continue at home.
Nebs once or twice at home should continue.
Antitussives
Mucolytic's Continue at home.
Not bronchospastic on exam. Restart Brestri -started since December.
-
Patient does have mild coronary calcification on CAT scan.
Obtain EKG
Denies any exertional chest pain or cardiac history.
-
DVT prophylaxis with heparin subcu.
-
Ok to DC today.
Will sign off.
Follow up with Dr. Pizarro in two weeks.
Subjective Data
-
Date of Service:
Date of Service: January 30, 2025
Chief Complaint: Pulmonary Follow Up (Pneumonia)
Subjective:
No new complaints.
Overall feels better comparing to admission.
Review of Systems
General: Fever (n)
Cardiopulmonary: Dyspnea (n)
Objective Data
Data Reviewed
Vital Signs / I&O / Oxygen:
Vital Signs
Temp Pulse Resp BP Pulse Ox
97.9 F 78 16 117/56 95
01/30/25 07:00 01/30/25 11:18 01/30/25 11:18 01/30/25 07:00 01/30/25 11:18
Intake and Output
01/29/25 01/30/25 01/31/25
06:59 06:59 06:59
Intake Total 680 / 680 1210 / 1210 480 / 480
Balance 680 / 680 1210 / 1210 480 / 480
SaO2 95
Nasal Cannula flow liters per 2
minute
Physical Exam
General: Comfortable
HEENT: Normocephalic
Cardiovascular: S1-S2 and Regular Rhythm
Respiratory: Clear and Non-Labored Respirations
GI: Soft and Non Distended
Neurology: Awake and No Motor Deficits
Skin: Warm
Labs/Micro/Reports
Lab Data
01/28/25 05:57
01/28/25 05:57
Microbiology
01/29/25 09:55 Bronch Left Lower Lobe Respiratory Culture - Preliminary
NO GROWTH
01/29/25 09:55 Bronch Left Lower Lobe Gram Stain - Preliminary
01/29/25 09:55 Bronch Washing Respiratory Culture - Preliminary
NO GROWTH
01/29/25 09:55 Bronch Washing Gram Stain - Preliminary
01/27/25 23:28 Blood/Venous Blood Culture - Preliminary
No Growth in 48 hours- Final report to follow
01/27/25 23:24 Blood/Venous Blood Culture - Preliminary
No Growth in 48 hours- Final report to follow
01/29/25 09:55 Bronch Washing Fungal Culture - Preliminary
Culture in progress.
Positive cultures are reported as soon as detected.
Final report to follow in four to five weeks.
01/29/25 09:55 Bronchoalveolar Lavage Fungal Culture - Preliminary
Culture in progress.
Positive cultures are reported as soon as detected.
Final report to follow in four to five weeks.
01/28/25 01:02 Nose MRSA Screen - Final
No Methicillin Resistant Staphylococcus aureus isolated.
01/28/25 07:10 Sputum Respiratory Culture - Final
01/28/25 07:10 Sputum Gram Stain - Final
01/28/25 01:02 Urine Legionella Urinary Antigen - Final
Negative for Legionella pneumophila Serogroup 1 antigen.
A negative result does not rule out the possiblity of
Legionella infection due to other serogroups or species of
Legionella. Clinical correlation is recommended.
01/28/25 01:02 Urine Streptococcus pneumoniae Antigen (M - Final
Negative for Streptococcus pneumoniae antigen.
A negative result does not exclude infection with
Streptococcus pneumoniae. Clinical correlation is
recommended.
[2025-01-30 12:35] VITALS: BP 123/59
== END 2025-01-30 12:43 | disposition home or self-care (01) | DRG 194 ==
LOC: 4 EAST ACU 23:24
PROVIDERS: Emergency Medicine; ADMITTING PHYSICIAN Hospitalist; ATTENDING PHYSICIAN Internal Medicine; EMERGENCY PHYSICIAN Emergency Medicine; FAMILY PHYSICIAN Family Medicine; OTHER PHYSICIAN Internal Medicine Critical Care Medicine
PROC: 0BDJ8ZX Extraction of Left Lower Lung Lobe, Via Natural or Artificial Opening Endoscopic, Diagnostic (ICD-10-PCS; 2025-01-29)
DX: J18.9 Pneumonia, unspecified organism (principal); J98.11 Atelectasis; J98.09 Other diseases of bronchus, not elsewhere classified; Z87.891 Personal history of nicotine dependence; K21.9 Gastro-esophageal reflux disease without esophagitis; E78.00 Pure hypercholesterolemia, unspecified; R09.02 Hypoxemia; R06.89 Other abnormalities of breathing; J40 Bronchitis, not specified as acute or chronic
CPT/HCPCS: 88305; 80053; 83605; 84145; 85025; 85652; 86140; 87040; 87070; 87102; 87116; 87205; 87449; 87899; 88112; 89051; 93005; 94640; 99285

== ENCOUNTER → 2025-02-19 16:39 | Outpatient (REF) | payer MEDICARE, SELFPAY | LOC: HWRAD 16:39 | PROVIDERS: ATTENDING PHYSICIAN Internal Medicine Critical Care Medicine; FAMILY PHYSICIAN Family Medicine | DX: J18.9 Pneumonia, unspecified organism (principal) | CPT/HCPCS: 71046; 71250 ==

== ENCOUNTER → 2025-06-09 10:49 | Outpatient (REF) | payer MEDICARE, SELFPAY | LOC: HWRCS 10:49 | PROVIDERS: ATTENDING PHYSICIAN Internal Medicine Interventional Cardiology; FAMILY PHYSICIAN Physician Assistant | DX: R06.02 Shortness of breath (principal) | CPT/HCPCS: 78452; 93017; A9500; J2785 ==

== ENCOUNTER → 2025-08-05 08:25 | Outpatient (REF) | payer MEDICARE, SELFPAY | LOC: HWRAD 08:25 | PROVIDERS: ATTENDING PHYSICIAN Internal Medicine Critical Care Medicine; FAMILY PHYSICIAN Family Medicine | DX: J18.9 Pneumonia, unspecified organism (principal); R91.1 Solitary pulmonary nodule | CPT/HCPCS: 71250 ==